=== PATIENT | male | born 1995 | race Two or more races ===

== ENCOUNTER 2018-08-23 22:59 | Emergency (ER) | payer OTHER ==
[~2018-08-23] VITALS: Ht 172.7 cm; Wt 94.4 kg
[2018-08-23 23:30] VITALS: BP 143/89
[2018-08-24 00:27] LABS: CLARITY URINE CLEAR (CLEAR); COLOR URINE YELLOW (YELLOW); KETONES URINE NEGATIVE (NEGATIVE); LEUKOCYTE ESTERASE URINE 3+ (NEGATIVE); NITRITE URINE NEGATIVE (NEGATIVE); OCCULT BLOOD URINE TRACE (NEGATIVE); PROTEIN URINE NEGATIVE (NEGATIVE); SPECIFIC GRAVITY URINE 1.014 (1.005-1.030)
[2018-08-24] MEDS ORDERED: CEFTRIAXONE SODIUM 250 MG/VIAL IM ONE (00:30)
[2018-08-24] MEDS ORDERED: AZITHROMYCIN 500 MG TABLET PO ONE (00:30)
== END 2018-08-24 01:51 | disposition home or self-care (01) ==
LOC: ER 22:59
DX: A64 Unspecified sexually transmitted disease (principal); N39.0 Urinary tract infection, site not specified; B34.9 Viral infection, unspecified
CPT/HCPCS: 81003; 87086; 96372; 99283; J0696